=== PATIENT | female | born 1935 | race Caucasian/White ===

== ENCOUNTER → 2017-09-16 | Outpatient (CLI) | payer OTHER, BC ==
[2017-09-16 18:37] LABS: CALCIUM 8.5 mg/dL (8.5-10.1); CARBON DIOXIDE 31.2 mmol/L (21-32); CHLORIDE SERUM 102 mmol/L (98-107); CREATININE SERUM 0.9 mg/dL (0.6-1.0); GLUCOSE SERUM 145 mg/dL (74-106); POTASSIUM SERUM 3.6 mmol/L (3.5-5.1); SODIUM SERUM 138 mmol/L (136-145)
[2017-09-16 18:42] LABS: ALBUMIN 3.5 g/dL (3.4-5.0); ALKALINE PHOSPHATASE 126 U/L (46-116); ALT/SGPT 19 U/L (14-59); AST/SGOT 16 U/L (15-37); BILIRUBIN TOTAL 0.28 mg/dL (0.20-1.00); TOTAL PROTEIN, SERUM 7.2 g/dL (6.4-8.2)
[2017-09-16 18:56] LABS: BASOPHIL % 0.8 % (0-2); PLATELET COUNT 266 x10^3mcL (130-400); RED CELL DISTRIBUTION WIDTH 13.3 % (11.5-14.5)
== END | disposition home or self-care (01) ==
LOC: CT 17:55
PROVIDERS: Family Medicine
PROC: BW251ZZ Computerized Tomography (CT Scan) of Chest, Abdomen and Pelvis using Low Osmolar Contrast (ICD-10-PCS; principal; 2017-09-16)
DX: I71.4 Abdominal aortic aneurysm, without rupture (principal)
CPT/HCPCS: 83880; 85378; Q9967

== ENCOUNTER → 2017-09-22 | Outpatient (CLI) | payer OTHER, BC | END | disposition home or self-care (01) | LOC: CT 08:52 | PROC: BW21ZZZ Computerized Tomography (CT Scan) of Abdomen and Pelvis (ICD-10-PCS; principal; 2017-09-22) | PROC: BG44ZZZ Ultrasonography of Thyroid Gland (ICD-10-PCS; 2017-09-22) | DX: E04.1 Nontoxic single thyroid nodule (principal); K31.9 Disease of stomach and duodenum, unspecified | CPT/HCPCS: A9698; Q0092; Q9967 ==